=== PATIENT | male | born 1965 | race Two or more races ===

== ENCOUNTER → 2020-09-29 | Outpatient (CLI) | payer OTHER | LOC: LAB 08:49 | PROVIDERS: ATTEND Internal Medicine Pulmonary Disease | DX: R50.9 Fever, unspecified (principal); Z20.828 Contact with and (suspected) exposure to other viral communicable diseases | CPT/HCPCS: U0003 ==

== ENCOUNTER → 2021-08-13 | Outpatient (CLI) | payer OTHER ==
--- NOTE | 2021-08-13 13:09 | KCIC ---
EXAM: CT coronary artery calcium screening; radiologist over read. HISTORY: Cardiovascular screening. TECHNIQUE: Computed tomographic images of the chest were obtained without contrast. Multiplanar refor matting was performed. *One or more of the following individualized dose reduction techniques were utilized for this examina tion: 1. Automated exposure control. 2. Adjustment of the mA and/or kV according to patient size. 3. Use of iterative reconstruction technique. COMPARISON: None. FINDINGS: The heart is normal in size. The aorta is normal in caliber. No pathologically enlarged lym ph node is seen. There is a tiny calcified granuloma within the right middle lobe. There is minimal r ight middle lobe atelectasis or scarring. There is no suspicious pulmonary nodule. There is no acute finding involving the visualized upper abdomen or osseous structures. Coronary artery calcium score: Left main artery - 0 Left anterior descending - 0 Left circumflex - 0 Right coronary artery - 0 Posterior descending artery - 0 TOTAL = 0 IMPRESSION: 1. Coronary artery calcium score of 0. No identifiable calcified atherosclerotic plaque involving the coronary arteries. 2. No significant incidental thoracic finding. Electronically signed by: Khushi Brandt MD (08/13/2021 1:07 PM) [id number]
== END ==
LOC: KCIC CT 12:22
PROVIDERS: ATTEND Internal Medicine Critical Care Medicine
DX: Z13.6 Encounter for screening for cardiovascular disorders (principal)
CPT/HCPCS: 75571

== ENCOUNTER → 2021-10-15 | Outpatient (CLI) | payer OTHER | LOC: LAB 12:35 | PROVIDERS: ATTEND Internal Medicine Pulmonary Disease | DX: Z20.822 Contact with and (suspected) exposure to COVID-19 (principal) | CPT/HCPCS: U0003; U0005 ==